=== PATIENT | female | born 1945 | race Caucasian/White ===

== ENCOUNTER → 2017-02-17 | Outpatient (CLI) | payer OTHER, BC | LOC: FIMAGING 10:00 | DX: Z12.31 Encounter for screening mammogram for malignant neoplasm of breast (principal); Z90.11 Acquired absence of right breast and nipple | CPT/HCPCS: G0202-52 ==

== ENCOUNTER → 2017-02-19 | Outpatient (CLI) | payer OTHER, BC | LOC: BHFA 14:00 | PROVIDERS: ATTEND Internal Medicine Cardiovascular Disease | DX: I49.3 Ventricular premature depolarization (principal); I10 Essential (primary) hypertension; R94.31 Abnormal electrocardiogram [ECG] [EKG] ==

== ENCOUNTER → 2017-06-02 | Outpatient (CLI) | payer OTHER, BC | LOC: BHFA 14:00 | PROVIDERS: ATTEND Internal Medicine Cardiovascular Disease | DX: I34.0 Nonrheumatic mitral (valve) insufficiency (principal); I10 Essential (primary) hypertension; I47.1 Supraventricular tachycardia; I49.3 Ventricular premature depolarization ==

== ENCOUNTER → 2018-02-18 | Outpatient (CLI) | payer OTHER, BC | LOC: FIMAGING 09:24 | PROVIDERS: ATTEND Internal Medicine Hematology & Oncology | DX: Z12.31 Encounter for screening mammogram for malignant neoplasm of breast (principal); Z90.11 Acquired absence of right breast and nipple; Z85.3 Personal history of malignant neoplasm of breast; Z80.3 Family history of malignant neoplasm of breast ==

== ENCOUNTER → 2018-02-27 | Outpatient (CLI) | payer OTHER, BC | LOC: FLAB 13:21 | PROVIDERS: ATTEND Internal Medicine Hematology & Oncology | DX: Z13.820 Encounter for screening for osteoporosis (principal); M85.89 Other specified disorders of bone density and structure, multiple sites; Z78.0 Asymptomatic menopausal state; Z85.3 Personal history of malignant neoplasm of breast; Z87.81 Personal history of (healed) traumatic fracture ==

== ENCOUNTER → 2019-02-09 | Outpatient (CLI) | payer OTHER, BC | LOC: FIMAGING 12:58 | PROVIDERS: ATTEND Surgery | DX: Z45.2 Encounter for adjustment and management of vascular access device (principal) ==

== ENCOUNTER 2019-02-19 09:55 | Day surgery (SDC) | payer OTHER, BC ==
[2019-02-19] MEDS ORDERED: MEPERIDINE 25 MG/ML SYR IVP PRN (10:48)
[2019-02-19] MEDS ORDERED: fentaNYL 100 MCG/2 ML INJ IVP PRN (10:48)
[2019-02-19] MEDS ORDERED: PROTAMINE SULFATE 50 MG/5 ML VIAL IVP PRN (10:48)
[2019-02-19] MEDS ORDERED: GLUCAGON HCL 1 MG VIAL IVP PRN (10:48)
[2019-02-19] MEDS ORDERED: FLUMAZENIL 0.5 MG/5 ML MDV IVP PRN (10:48)
[2019-02-19] MEDS ORDERED: MIDAZOLAM 2 MG/2 ML VIAL IVP PRN (10:48)
[2019-02-19] MEDS ORDERED: NALOXONE HCL 0.4 MG/ML INJ IVP PRN (10:48)
[2019-02-19] MEDS ORDERED: ALTEPLASE 2 MG VIAL IVP PRN (10:48)
[2019-02-19] MEDS ORDERED: HEPARIN 10,000 UNIT/10 ML MDV (1,000 UNIT/ML) IVP PRN (10:48)
[2019-02-19] MEDS ORDERED: NS 1,000 ML IV SCH (11:00)
[2019-02-19 12:34] LABS: INR 1.16 (0.83-1.16); PROTIME(PATIENT) 14.3 SEC (12.0-15.0)
[2019-02-19] MEDS ORDERED: FLUMAZENIL 0.5 MG/5 ML MDV IVP ONE (12:48)
[2019-02-19] MEDS ORDERED: MIDAZOLAM 2 MG/2 ML VIAL ONE (12:49)
[2019-02-19] MEDS ORDERED: fentaNYL 100 MCG/2 ML INJ ONE (12:49)
[2019-02-19] MEDS ORDERED: NALOXONE HCL 0.4 MG/ML INJ ONE (12:49)
[2019-02-19 15:27] VITALS: BP 121/71
== END 2019-02-19 15:15 | disposition home or self-care (01) ==
LOC: FIMAGING 09:55
PROVIDERS: ATTEND Internal Medicine Hematology & Oncology
DX: R22.2 Localized swelling, mass and lump, trunk (principal); C79.51 Secondary malignant neoplasm of bone; Z85.3 Personal history of malignant neoplasm of breast; I10 Essential (primary) hypertension; E78.5 Hyperlipidemia, unspecified; N18.9 Chronic kidney disease, unspecified
CPT/HCPCS: J1642; J2250; J2310; J3010

== ENCOUNTER → 2019-03-09 | Outpatient (CLI) | payer OTHER, BC | LOC: FIMAGING 09:26 ==